=== PATIENT | male | born 1965 | race Caucasian/White ===

== ENCOUNTER 2019-05-16 05:33 | Inpatient (IN) | payer OTHER ==
[2019-05-16] MEDS ORDERED: OXYCODONE/ACETAMINOPHEN (5/325) TAB PO ×2 (07:00)
[2019-05-16] MEDS ORDERED: hydrALAzine 20 MG INJ IV (07:00)
[2019-05-16] MEDS ORDERED: ALBUTEROL 0.083% (NEB) 2.5 MG/3 ML AMP HHN (07:00)
[2019-05-16] MEDS ORDERED: IPRATROPIUM (NEB) 0.5 MG/2.5 ML AMP HHN (07:00)
[2019-05-16] MEDS ORDERED: FENTAnyl 50 MCG/ML VIAL IV ×2 (07:00)
[2019-05-16] MEDS ORDERED: DIPHENHYDRAMINE 50 MG INJ IV (07:00)
[2019-05-16] MEDS ORDERED: HYDROmorphONE 1 MG/5 ML IV SYRINGE IV ×3 (07:00)
[2019-05-16] MEDS ORDERED: MIDAZOLAM 1 MG/ML 2 ML INJ IV (07:00)
[2019-05-16] MEDS ORDERED: EPHEDrine 25 MG/5 ML SYG IV (07:00)
[2019-05-16] MEDS ORDERED: TRIMETHOBENZAMIDE 100 MG/ML VIAL IM (07:00)
[2019-05-16] MEDS ORDERED: GLYCOPYRROLATE 0.4 MG INJ (07:04)
[2019-05-16] MEDS ORDERED: MIDAZOLAM 1 MG/ML 2 ML INJ (07:04)
[2019-05-16] MEDS ORDERED: PROPOFOL 20 ML (07:04)
[2019-05-16] MEDS ORDERED: NEOSTIGMINE 3 MG/3 ML SYRINGE (07:04)
[2019-05-16] MEDS ORDERED: ROCURONIUM 50 MG INJ (07:04)
[2019-05-16] MEDS ORDERED: ONDANSETRON 4 MG INJ (07:04)
[2019-05-16] MEDS ORDERED: CEFAZOLIN 1 GM INJ (07:04)
[2019-05-16] MEDS ORDERED: FENTAnyl 50 MCG/ML VIAL (07:04)
[2019-05-16] MEDS ORDERED: DEXAMETHASONE 4 MG/ML 5 ML INJ (07:05)
[2019-05-16] MEDS: SURGIFOAM POWDER 1 GM KIT (08:39)
[2019-05-16] MEDS: GELATIN SIZE 100 SPONGE (08:39)
[2019-05-16] MEDS: THROMBIN (BOVINE) 5,000 UNIT VIAL TP (08:39)
[2019-05-16] MEDS: POLYMYXIN/BACITRACIN 1L IRRIG (08:39)
[2019-05-16] MEDS: BUPIVACAINE 0.5%/EPI (SDV) 30 ML INJ (08:39)
[2019-05-16] MEDS ORDERED: PROCHLORPERAZINE 10 MG TAB PO (14:00)
[2019-05-16] MEDS ORDERED: NACL 0.9% 3 ML SYG IV (14:00)
[2019-05-16] MEDS ORDERED: AL HYDROX/MG HYDROX/SIMETH 30 ML CUP PO (14:00)
[2019-05-16] MEDS ORDERED: ONDANSETRON 4 MG INJ IV (14:00)
[2019-05-16] MEDS ORDERED: HYDROCODONE/APAP (5/325) TAB PO ×2 (14:00)
[2019-05-16] MEDS ORDERED: NALOXONE (0.4 MG/ML) INJ IV (14:00)
[2019-05-16] MEDS ORDERED: ACETAMINOPHEN 325 MG TAB PO (14:00)
[2019-05-16] MEDS: ONDANSETRON 4 MG INJ IV (14:16)
[2019-05-16] MEDS: FENTAnyl 50 MCG/ML VIAL IV ×2 (14:17→14:35)
[2019-05-16] MEDS: HYDROmorphONE 0.2 MG/ML PCA IV ×2 (14:28→22:17)
[2019-05-16] MEDS: MEPERIDINE 25 MG INJ IV (14:55)
[2019-05-16] MEDS: LABETALOL HCL 20MG INJ IV ×2 (15:03→15:12)
[2019-05-16] MEDS: ACETAMINOPHEN 1000MG/100ML IV 100 ML IVPB ×2 (16:15→21:36)
[2019-05-16] MEDS: CEFAZOLIN 1 GM/50 ML (PMX) 50 ML IVPB ×2 (17:49→23:56)
[2019-05-16] MEDS: DEXTROSE 5%-0.45% NACL 1,000 ML IV (21:34)
[2019-05-17 05:20] LABS: HEMATOCRIT 37.1 % (42.0-52.0); HEMOGLOBIN 12.2 g/dl (14.0-18.0)
[2019-05-17 05:37] LABS: ANION GAP 11 (5-13); BLOOD UREA NITROGEN 12 mg/dl (7-20); CALCIUM 8.7 mg/dl (8.4-10.2); CARBON DIOXIDE 29 mmol/L (21-31); CHLORIDE 102 mmol/L (97-110); CREATININE 0.81 mg/dl (0.61-1.24); Estimated GFR > 60 mL/min (>60); GLUCOSE 117 mg/dl (70-220); POTASSIUM 3.8 mmol/L (3.5-5.1); SODIUM 142 mmol/L (135-144)
[2019-05-17] MEDS: ACETAMINOPHEN 1000MG/100ML IV 100 ML IVPB (05:41)
[2019-05-17] MEDS: CEFAZOLIN 1 GM/50 ML (PMX) 50 ML IVPB ×2 (05:47→12:43)
[2019-05-17] MEDS: HYDROmorphONE 0.2 MG/ML PCA IV ×3 (08:22→22:34)
[2019-05-17] MEDS: LIDOCAINE 5% PATCH TD ×2 (08:23→13:59)
[2019-05-17] MEDS: DOCUSATE SODIUM 100 MG CAP PO ×2 (08:25→21:04)
[2019-05-17] MEDS: DEXAMETHASONE 10 MG/ML 1 ML INJ IV (13:53)
[2019-05-17] MEDS: BACLOFEN 10 MG TAB PO (18:05)
[2019-05-17] MEDS: DEXTROSE 5%-0.45% NACL 1,000 ML IV (18:05)
[2019-05-17] MEDS: PAROXETINE 20 MG TAB PO (21:04)
[2019-05-17] MEDS: METOPROLOL 25 MG TAB PO (21:05)
[2019-05-18] MEDS: HYDROmorphONE 0.2 MG/ML PCA IV ×2 (06:58→13:21)
[2019-05-18] MEDS: DOCUSATE SODIUM 100 MG CAP PO ×2 (08:14→20:43)
[2019-05-18] MEDS: METOPROLOL 25 MG TAB PO ×2 (08:14→20:41)
[2019-05-18] MEDS: LIDOCAINE 5% PATCH TD (08:14)
[2019-05-18] MEDS ORDERED: OXYCODONE/ACETAMINOPHEN (10/325) TAB PO (11:00)
[2019-05-18] MEDS: DEXAMETHASONE 10 MG/ML 1 ML INJ IV (12:16)
[2019-05-18] MEDS: DEXTROSE 5%-0.45% NACL 1,000 ML IV ×2 (13:30→19:16)
[2019-05-18] MEDS: OXYCODONE/ACETAMINOPHEN (10/325) TAB PO ×2 (16:33→20:42)
[2019-05-18] MEDS: PAROXETINE 20 MG TAB PO (20:41)
[2019-05-19] MEDS: OXYCODONE/ACETAMINOPHEN (10/325) TAB PO ×4 (00:47→13:01)
[2019-05-19] MEDS ORDERED: HYDROmorphONE 0.5 MG/0.5 ML SYG IV (07:30)
[2019-05-19] MEDS: LIDOCAINE 5% PATCH TD (08:48)
[2019-05-19] MEDS: DOCUSATE SODIUM 100 MG CAP PO (08:48)
[2019-05-19] MEDS: METOPROLOL 25 MG TAB PO (08:49)
[2019-05-19] MEDS: DEXAMETHASONE 10 MG/ML 1 ML INJ PO (11:50)
[2019-05-19] MEDS: DEXAMETHASONE 2 MG TAB PO (12:18)
== END 2019-05-19 13:40 | disposition home or self-care (01) | DRG 473 ==
LOC: REC 05:33 → MS1 15:53
PROC: 0RB30ZZ Excision of Cervical Vertebral Disc, Open Approach (ICD-10-PCS; principal; 2019-05-16 07:30)
PROC: 0RG20A0 Fusion of 2 or more Cervical Vertebral Joints with Interbody Fusion Device, Anterior Approach, Anterior Column, Open Approach (ICD-10-PCS; 2019-05-16 07:30)
PROC: 01N10ZZ Release Cervical Nerve, Open Approach (ICD-10-PCS; 2019-05-16 07:30)
PROC: 4A11X4G Monitoring of Peripheral Nervous Electrical Activity, Intraoperative, External Approach (ICD-10-PCS; 2019-05-16 07:30)
DX: M50.121 Cervical disc disorder at C4-C5 level with radiculopathy (principal); M48.02 Spinal stenosis, cervical region; M50.122 Cervical disc disorder at C5-C6 level with radiculopathy; M50.123 Cervical disc disorder at C6-C7 level with radiculopathy; I10 Essential (primary) hypertension; G89.29 Other chronic pain
CPT/HCPCS: 72040; 72050; 80048; 85014; 85018; 86850; 86900; 86901; 88304; 97110; 97116; 97161; 97530